=== PATIENT | male | born 1995 | race Caucasian/White ===

== ENCOUNTER 2023-12-12 08:57 | Emergency (ER) | payer OTHER, SELFPAY ==
--- NOTE | ~2023-12-12 | XR_ITS ---
EXAMINATION: XR ankle RT min 3V, XR foot RT min 3V DATE: 12/12/2023 11:22 INDICATION: Lateral right foot and ankle pain and swelling post trauma TECHNIQUE: 1. Anteroposterior, mortise, additional oblique and lateral view of the right ankle were obtained. 2. Dorsoplantar, two oblique and lateral views of the right foot were obtained. COMPARISON: None. FINDINGS: Alignment of the right foot and ankle is normal. No fracture or osteochondral lesion. Joint spaces ar e well maintained. No ankle joint effusion. Soft tissue swelling at the lateral right hindfoot. IMPRESSION: 1. No osseous abnormality. Reviewed, dictated and finalized at location A. [facility] [employer] IMPRESSION: 1. No osseous abnormality. IMPRESSION: 1. No osseous abnormality.
[2023-12-12 08:58] VITALS: BP 139/84; PULSE 71; RESP 20; TEMP 36.9; O2SAT 100
--- NOTE | 2023-12-12 11:04 | ED.LOWEXIN ---
HPI - Extremity Injury (Lower) General Chief Complaint: Extremity Injury, Lower Stated Complaint: right ankle pain Time Seen by Provider: 12/12/23 10:58 Source: patient Mode of arrival: ambulatory Limitations: no limitations History of Present Illness HPI Narrative: Efraín is a 28-year-old female patient presenting to the clinic today with complaints of right ankle and foot pain after rolling it this morning. He reports he was walking along the sidewalk and stepped in between the sidewalk and a retaining wall and there was a gap and he and up rolling his ankle at that time. States he had intense pain for about 15 minutes before the pain eased up. He currently rates his pain a 4/10 but states when it side is worse at the 6/10. Pain is to the lateral ankle into the lateral foot. No obvious bruising or swelling noted. Reports pain worse with ambulation when stepping off Related Data Home Medications Medication Instructions Recorded Confirmed No Home Medications 08/26/21 08/26/21 Allergies Allergy/AdvReac Type Severity Reaction Status Date / Time No Known Drug Allergies Allergy Unknown n/a Verified 12/12/23 08:57 Review of Systems Review of Systems: Pertinent positives per HPI. Patient denies any fever, chills, rash, headache, visual changes, dizziness, cough, runny nose, sore throat, shortness of breath, chest pain, palpitations, nausea, vomiting, diarrhea, constipation, abdominal pain, or any urinary issues. [facility] Family History Family History Grandparent Cancer Social History Social History Smoking status: Never smoker Alcohol intake: current Living arrangements: with family Occupation/Education: occupation Additional occupation/education comments: Salesman Gender identity (if verbalized by the patient): Male Comments At the time of my signature, I reviewed and agree with the nursing past medical, surgical, social, and family history. There is no relevant family history pertinent to the patient complaint. Exam Narrative: General: Well-developed, well nourished, in no apparent distress Head: Normocephalic, atraumatic. Cardio: Regular rate and rhythm, s1 and s2 normal, no murmur appreciated. Resp: Clear to auscultation bilaterally, no rhonchi, rales, wheezing or rubs. Musculoskeletal: No deformity, tender to palpation over the right lateral ankle and right lateral foot, pain with valgus and varus testing without laxity, mild pain with dorsal flexion and plantar flexion, grossly normal range of motion, muscle strength strong and equal, peripheral pulse strong, no edema, no cyanosis, normal gait and station Course Course Emergency Course: Portions of this record may have been created with voice recognition software. Vital Signs Vital signs: Vital Signs Temperature 36.9 C 12/12/23 08:58 Pulse Rate 71 12/12/23 08:58 Respiratory Rate 20 12/12/23 08:58 Blood Pressure 139/84 12/12/23 08:58 Pulse Oximetry 100 12/12/23 08:58 Oxygen Delivery Room Air 12/12/23 08:58 Temperature 36.9 C 12/12/23 08:58 Pulse Rate 71 12/12/23 08:58 Respiratory Rate 20 12/12/23 08:58 Blood Pressure 139/84 12/12/23 08:58 Pulse Oximetry 100 12/12/23 08:58 Oxygen Delivery Room Air 12/12/23 08:58 Vital signs reviewed MDM - Extremity Injury (Lower) MDM Narrative Medical decision making narrative: At the time of visit patient is resting comfortably on the exam table. Patient appears to be nontoxic. Diagnostics: X-ray of the right ankle and foot was performed. Both are negative for any fracture or malalignment. Plan: I suspect patient has a right ankle and right foot sprain. Bin wrap was applied. Supportive measures were discussed with the patient and they voiced understanding discharge instructions and agrees to treatment plan. Return precaut
--- NOTE | 2023-12-12 11:17 | PC.NURSE ---
Pt c/o pain & swelling to right ankle after stepping wrong in a hole. Noted mild edema, CMS intact. Pedal pulse palp & bounding. Partial weight bearing
[2023-12-12 12:04] VITALS: BP 140/82; PULSE 70; RESP 18; TEMP 37; O2SAT 100
== END 2023-12-12 12:06 | disposition home or self-care (01) ==
PROVIDERS: Emergency Provider Nurse Practitioner Family
DX: S93.411A Sprain of calcaneofibular ligament of right ankle, initial encounter (principal); S93.601A Unspecified sprain of right foot, initial encounter; X50.0XXA Overexertion from strenuous movement or load, initial encounter
CPT/HCPCS: 73610; 73630; 99283